=== PATIENT | male | born 1950 | race Caucasian/White ===

== ENCOUNTER 2023-11-11 15:30 | Observation (INO) ==
[2023-11-11 16:08] LABS: ABS Basophils 0.1 10^3/uL (0.0-0.1); ABS Eosinophils 0.1 10^3/uL (0.0-0.5); ABS Lymphocytes 1.8 10^3/uL (1.0-4.8); ABS Monocytes 0.7 10^3/uL (0.0-1.1); ABS Neutrophils 4.2 10^3/uL (1.5-7.6); ABS Nucleated RBC 0.01 10^3/ul; Eosinophil % 1.3 %; Hematocrit 41.6 % (38-53); Hemoglobin 13.7 g/dL (13.2-16.3); Lymphocyte % 26.2 %; Mean Corpuscular Hemoglobin 29.2 pg (27-33); Mean Corpuscular Hgb Conc 32.9 g/dL (31-36); Mean Corpuscular Volume 88.9 fL (80-97); Nucleated Red Blood Cells % 0.2 %/100WBC (0.0-0.8); Platelet Count 213 10^3/uL (150-450); Red Blood Count 4.68 10^6/uL (4.06-5.63); Red Cell Distribution Width 16.3 % (12-17); White Blood Count 6.8 10^3/uL (3.6-10.2)
[2023-11-11 16:11] LABS: INR 0.96 (0.83-1.13)
[2023-11-11 16:57] LABS: Albumin 3.9 g/dL (3.2-5.2); Albumin/Globulin Ratio 1.7 (1-3); Calcium 8.7 mg/dL (8.6-10.3); Creatinine, Serum 0.73 mg/dL (0.67-1.17); Globulin 2.3 g/dL (2-4); Potassium 3.9 mmol/L (3.5-5.0); Total Bilirubin 0.5 mg/dL (0.2-1.0); Total Protein 6.2 g/dL (6.4-8.9); eGFR CKD-EPI 96.1 (>60)
[2023-11-11 17:56] LABS: High Sensitivity Troponin 1 Hr 5 pg/mL (<20)
[2023-11-11] MEDS ORDERED: Polyethylene Glycol 3350 17 GM PACKET PO PRN (18:44)
[2023-11-11] MEDS ORDERED: Senna TAB 8.6 mg TAB PO PRN (18:44)
[2023-11-11] MEDS ORDERED: Dextrose 50% Syringe 50 ml 25 GM/50 ML SYRINGE IV PUSH PRN (19:25)
[2023-11-11 20:34] LABS: Magnesium 1.9 mg/dL (1.9-2.7)
[2023-11-11] MEDS: Enoxaparin 40 MG/0.4 ML SYR SUBCUT SCH (21:39)
[2023-11-11] MEDS: Potassium Chloride LIQUID 20 MEQ/15 ML LIQUID PO ONE (21:40)
[2023-11-12 05:14] LABS: ABS Eosinophils 0.1 10^3/uL (0.0-0.5); ABS Lymphocytes 1.4 10^3/uL (1.0-4.8); ABS Monocytes 0.6 10^3/uL (0.0-1.1); ABS Neutrophils 3.4 10^3/uL (1.5-7.6); Eosinophil % 2.3 %; Hematocrit 39.2 % (38-53); Hemoglobin 13.2 g/dL (13.2-16.3); Lymphocyte % 25.5 %; Mean Corpuscular Hgb Conc 33.8 g/dL (31-36); Mean Corpuscular Volume 88.7 fL (80-97); Platelet Count 206 10^3/uL (150-450); Red Blood Count 4.42 10^6/uL (4.06-5.63); Red Cell Distribution Width 16.3 % (12-17); White Blood Count 5.7 10^3/uL (3.6-10.2)
[2023-11-12 05:51] LABS: Calcium 8.1 mg/dL (8.6-10.3); Creatinine, Serum 0.63 mg/dL (0.67-1.17); Potassium 3.9 mmol/L (3.5-5.0); eGFR CKD-EPI 100.4 (>60)
[2023-11-12] MEDS: Aspirin EC 81 mg TAB.EC (enteric coated) PO SCH (08:29)
[2023-11-12] MEDS: Solifenacin 5 mg TAB (NF) PO SCH (08:29)
[2023-11-12] MEDS ORDERED: Aminophylline 25 MG/ML VIAL ONE ×2 (08:38→10:01)
[2023-11-12] MEDS ORDERED: Regadenoson 0.4 MG/5 ML SYRINGE ONE ×2 (08:38→10:00)
[2023-11-12] MEDS ORDERED: Sulfur Hexaflouride MICROSPHR 25 MG VIAL ONE (08:54)
[2023-11-12 08:56] LABS: HDL Cholesterol 60.7 mg/dL
[2023-11-12 12:32] LABS: High Sensitivity Troponin 1 Hr 5 pg/mL (<20)
[2023-11-12] MEDS: CMCS:Epleronone 25 mg TAB (NF) PO SCH (13:30)
[2023-11-12] MEDS: Potassium Chlor 20 meq TAB.ER PO ONE (17:13)
[2023-11-13 06:09] LABS: Calcium 8.5 mg/dL (8.6-10.3); Creatinine, Serum 0.59 mg/dL (0.67-1.17); Magnesium 1.9 mg/dL (1.9-2.7); Potassium 4.2 mmol/L (3.5-5.0); eGFR CKD-EPI 102.4 (>60)
[2023-11-13] MEDS ORDERED: Heparin 1,000 UNIT/ML 10 ml (10,000 UNITS) CATHLAB/DIALYSIS ONE (09:25)
[2023-11-13] MEDS ORDERED: VERAPAMIL 2.5 MG/ML 2 ML VIAL ** 5 mg/2 ml ONE (09:25)
[2023-11-13] MEDS ORDERED: Midazolam 5 mg/5 ml VIAL 1 mg/ml 5 ml VIAL (5 mg) ONE (09:25)
[2023-11-13] MEDS ORDERED: fentaNYL 100 mcg/2 ml 50 MCG/ML VIAL ONE (09:25)
[2023-11-13] MEDS ORDERED: Heparin 2 UNITS/ML 1000 mls 2,000 ML IV ONE (09:26)
[2023-11-13] MEDS ORDERED: Iohexol 350 (CONTRAST) 200 ML MDV IV ONE (09:26)
[2023-11-13] MEDS ORDERED: nitroGLYCERIN DRIP 25,000 MCG/250 ML BTL ONE (09:26)
[2023-11-13] MEDS ORDERED: Lidocaine 1% MPF 5 ML VIAL ONE (09:27)
[2023-11-13] MEDS ORDERED: Bivalirudin 250 MG VIAL ONE (10:13)
[2023-11-13] MEDS: NS 0.9% 1000 ml BAG 1,000 ML IV SCH (12:52)
[2023-11-13] MEDS: Magnesium Sulfate 2 gm BAG 2 GM/50 ML BAG IVPB ONE (12:56)
[2023-11-13 15:40] VITALS: BP 113/69
== END 2023-11-13 16:00 | disposition home or self-care (01) ==
LOC: EDHOLD 15:30 → ED 15:30 → SUATTDRO 18:44 → MEDTELE 19:59
PROVIDERS: ADMIT Student in an Organized Health Care Education/Training Program; ATTEND Hospitalist